=== PATIENT | female | born 2000 ===

== ENCOUNTER 2024-10-22 06:19 | Inpatient (IN) | payer MEDICAID, OTHER ==
[~2024-10-22] VITALS: Ht 154.9 cm; Wt 73.7 kg
--- NOTE | 2024-10-22 06:38 | ED.PDOC ---
History of Present Illness HPI Comments 23-year-old female came to the ER stating that she has been having back pain for the past two days on and off more so this morning. She denies nausea vomiting diarrhea. She states that her menstrual cycle has not started possibly could be due to pre menstrual period. Denies chest pain shortness a breath. She denies any lifting of heavy objects. Blood pressure 117 over 70 with a heart rate of 160. She denies any past medical surgical history. Denies any other symptoms. 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 Social History Smoker: Non-Smoker Alcohol: Denies ETOH Use Drugs: Denies Drug Use Constitutional: denies: chills, diaphoresis, fatigue, fever, malaise, sweats, weakness, others EENTM: denies: blurred vision, double vision, ear bleeding, ear discharge, ear drainage, ear pain, ear ringing, eye pain, eye redness, hearing loss, mouth pain, mouth swelling, nasal discharge, nose bleeding, nose congestion, nose pain, photophobia, tearing, throat pain, throat swelling, voice changes, others Respiratory: denies: cough, hemoptysis, orthopnea, SOB at rest, shortness of breath, SOB with excertion, stridor, wheezing, others Cardiovascular: denies: chest pain, dizzy spells, diaphoresis, Dyspnea on exertion, edema, irregular heart beat, left arm pain, lightheadedness, palpitations, PND, syncope, others Gastrointestinal: denies: abdomen distended, abdominal pain, blood streaked bowels, constipated, diarrhea, dysphagia, difficulty swallowing, hematemesis, melena, nausea, poor appetite, poor fluid intake, rectal bleeding, rectal pain, vomiting, others Genitourinary: denies: abnormal vagina bleeding, burning, dyspareunia, dysuria, flank pain, frequency, hematuria, incontinence, pain, , vagina discharge, urgency, others Neurological: denies: dizziness, fainting, headache, left sided numbness, left sided weakness, numbness, paresthesia, pre-existing deficit, right sided numbness, right sided weakness, seizure, speech problems, tingling, tremors, weakness, others Musculoskeletal: reports: back pain; denies: gout, joint pain, joint swelling, muscle pain, muscle stiffness, neck pain, others Integumetry: denies: bruises, change in color, change in hair/nails, dryness, laceration, lesions, lumps, rash, wounds, others Allergic/Immunocompromised: denies: Difficulty Healing, Frequent Infections, Hives, Itching, others Hematologic/Lymphatic: denies: anemia, blood clots, easy bleeding, easy bruising, swollen glands, others Endocrine: denies: excessive hunger, excessive sweating, excessive thirst, excessive urination, flushing, intolerance to cold, intolerance to heat, unexplained weight gain, unexplained weight loss, others Psychiatric: denies: anxiety, bipolar disorder, depression, hopeless, panic disorder, schizophrenia, sleepless, suicidal, others Physical Exam General Appearance: Moderate Distress HEENT: Normal ENT Inspection, Pharynx Normal, TMs Normal Neck: Full Range of Motion, Non-Tender, Normal, Normal Inspection Respiratory: Chest Non-Tender, Lungs Clear, No Accessory Muscle Use, No Respiratory Distress, Normal Breath Sounds Cardiovascular: Tachycardia Breast Exam: Deferred Gastrointestinal: No Organomegaly, Non Tender, No Pulsatile Mass, Normal Bowel Sounds, Soft Genitalia: Deferred Pelvic: Deferred Rectal: Deferred Extremities: No calf tenderness, Normal capillary refill, Normal inspection, Normal range of motion, Non-tender, No pedal edema Musculoskeletal : Apperance: Normal Neurologic: Alert, orthotic practitioner II-XII nml as Tested, No Motor Deficits, Normal Affect, Normal Mood, No Sensory Deficits Cerebellar Function: Normal Reflexes: Normal Skin: Dry, Normal Color, Warm Peripheral Pulses: 3+ Radial (R), 3+ Radial (L) Lymphatic: No Adenopathy Was a procedure done? Was a procedure done?: No EKG EKG : Pulse Rate (adult): 124 Cardiac Rhythm: ST Differential Dx Considerations may include: Back pain Urinary tract infection X-Ray, Labs, Meds, VS Vital Signs Date Time Temp Pulse Resp B/P (MAP) Pulse Ox O2 Delivery O2 Flow Rate FiO2 10/22/24 09:26 104 20 111/65 10/22/24 08:45 98.7 6/3/25 08:42 98.4 98 16 110/65 (80) 98 98.4 10/22/24 08:42 98 17 98 Room Air 10/22/24 07:07 101.2 10/22/24 06:52 124 10/22/24 06:46 124 10/22/24 06:19 101.2 124 22 116/77 (90) 95 101.2 Lab Test 10/22/24 07:34 10/22/24 06:50 Range/Units White Blood Count 21.7 H 4.4-10.8 10^3/uL Red Blood Count 5.33 H 4.0-5.20 10^6/uL Hemoglobin 15.2 12.2-16.2 g/dL Hematocrit 44.6 36.0-46.0 % Mean Corpuscular Volume 83.7 80.0-100.0 fL Mean Corpuscular Hemoglobin 28.6 28.0-32.0 pg Mean Corpuscular Hemoglobin Concent 34.2 32.0-36.0 g/dL Red Cell Distribution Width 13.6 11.8-14.3 % Platelet Count 266 140-450 10^3/uL Mean Platelet Volume 8.8 6.9-10.8 fL Neutrophils (%) (Auto) 86.6 H 37.0-80.0 % Lymphocytes (%) (Auto) 4.4 L 10.0-50.0 % Monocytes (%) (Auto) 8.7 0.0-12.0 % Eosinophils (%) (Auto) 0.1 0.0-7.0 % Basophils (%) (Auto) 0.2 0.0-2.0 % Neutrophils # (Auto) 18.8 H 1.6-8.6 10 ^3/uL Lymphocytes # (Auto) 0.9 0.4-5.4 10 ^3/uL Monocytes # (Auto) 1.9 H 0-1.3 10 ^3/uL Eosinophils # (Auto) 0 0-0.8 10 ^3/uL Basophils # (Auto) 0 0-0.2 10 ^3/uL Nucleated Red Blood Cells 0.0 % Sodium Level 141 136-145 mmol/L Potassium Level 3.7 3.5-5.1 mmol/L Chloride Level 107 98-107 mmol/L Carbon Dioxide Level 24 20-31 mmol/L Anion Gap 10 5-15 Blood Urea Nitrogen 11 9-23 mg/dL Creatinine 1.01 0.550-1.02 mg/dL Glomerular Filtration Rate Calc 79 >90 mL/min BUN/Creatinine Ratio 10.9 10.0-20.0 Serum Glucose 107 H 74-106 mg/dL Lactic Acid Level 1.2 0.4-2.0 mmol/L Calcium Level 10.5 H 8.7-10.4 mg/dL Total Bilirubin 2.2 H 0.2-1.0 mg/dL Aspartate Amino Transferase (AST) 23 13-40 U/L Alanine Aminotransferase (ALT) 46 H 7-40 U/L Alkaline Phosphatase 107 46-116 U/L Total Protein 8.3 H 5.7-8.2 g/dL Albumin 5.0 H 3.2-4.8 g/dL Urine Color Yellow Yellow Urine Clarity Turbid H Clear Urine pH 6.0 5.0-9.0 Urine Specific [place] 1.019 1.001-1.035 Urine Protein 2+ H Negative Urine Ketones Negative Negative Urine Blood 2+ H Negative /uL Urine Nitrite 2+ H Negative Urine Bilirubin Negative Negative Urine Urobilinogen Normal Negative mg/dL Urine Leukocyte Esterase 3+ Negative /uL Urine RBC 42 0 - 4 /hpf Urine Microscopic WBC 307 H 0-5 /HPF Urine Squamous Epithelial Cells Few <5 /hpf Urine Bacteria Few H None Seen /hpf Urine Mucus Few None Seen Urine Glucose Normal Normal mg/dL Current Medications Medications (Trade) Dose Ordered Sig/Genoveva Route Start Time Stop Time Status Last Admin Acetaminophen (Tylenol Tablet) 650 mg ONCE ONCE PO 10/22/24 07:15 10/22/24 07:16 DC 10/22/24 07:07 Morphine Sulfate 4 mg ONCE ONCE IV 10/22/24 07:15 10/22/24 07:16 DC 10/22/24 09:26 Ondansetron HCl (Zofran) 4 mg ONCE ONCE IV 10/22/24 07:15 10/22/24 07:16 DC 10/22/24 09:26 Sodium Chloride 1,000 ml @ 1,000 mls/hr Q1H ONCE IV 10/22/24 09:30 10/22/24 10:29 10/22/24 09:26 Patient alert. Increased heart rate. Ambulating. Saturation pristine on room air. Denies lifting heavy objects. Patient continues to be in pain. UA shows UTI. Establish intravenous access. Urine culture. WBC elevated. Sepsis from urinary tract infection. Was given Rocephin. Was given Flagyl. Explained to the patient. Continue monitoring. Time of 1ST Reevaluation: 06:37 Reevaluation 1ST: Unchanged Patient Education/Counseling: Diagnosis, Treatment, Prognosis Family Education/Counseling: Need For Follow Up Additional Information The following tests were ordered, and results were reviewed by me: XY LUMBAR SPINE 4+ VIEW, UA, XY LUMBAR SPINE 3 VIEW I reviewed and agreed with the following test results read by other providers: XY LUMBAR SPINE 4+ VIEW, XY LUMBAR SPINE 3 VIEW I discussed treatment and results with medical personnel and: patient Comprehensive systems review obtained and negative except for what is stated in the HPI. Sepsis Sepsis Reasesment Focused Exam Orders: Laboratory Tests 10/22/24 07:34: Lactic Acid Level 1.2 Departure 1 Departure Time of Disposition: 06:38 Impression: Primary Impression: Sepsis due to urinary tract infection Additional Impressions: Hematuria Qualified Codes: R31.9 - Hematuria, unspecified Kidney stone Lumbar sprain Qualified Codes: S33.5XXA - Sprain of ligaments of lumbar spine, initial encounter Disposition: ADMITTED INPATIENT Admit to: Med Surg Condition: Guarded Critical Care Note Critical Care Time?: Yes (90 min-critical care time only) Critical care comment: Sepsis protocol Stability Stability form required: No Heart Score Heart Score: Heart Score Response (Comments) Value History Slightly Suspicious 0 EKG Normal 0 Age <45 0 Risk Factors No known risk factors 0 Troponin Normal limit 0 Total 0 I personally scribed for CHICHO DANIELSON MD ([email or web address]) on 10/22/24 at 07:07. Electronically submitted by Mavis Yeung ([email or web address]). CHICHO DANIELSON MD Oct 22, 2024 06:38
[2024-10-22] MEDS: ACETAMINOPHEN 325 MG TAB PO ONE (07:07)
[2024-10-22 07:44] LABS: Urine Bacteria FEW /hpf (None Seen); Urine Blood 2+ /uL (Negative); Urine Clarity Turbid (Clear); Urine Color Yellow (Yellow); Urine Mucus FEW (None Seen); Urine Protein, UAD 2+ (Negative); Urine Specific Gravity 1.019 (1.001-1.035); Urine Squamous Epithelial Cell FEW /hpf (<5); Urine Urobilinogen Normal (Negative); Urine WBC 307 /HPF (0-5)
--- NOTE | 2024-10-22 08:03 | DVH ---
EXAM: XR Lumbosacral Spine, 2 or 3 Views CLINICAL INDICATION: disc TECHNIQUE: Frontal and lateral views of the lumbar spine and sacrum. COMPARISON: None FINDINGS: VERTEBRAE: Unremarkable. No acute fracture. Normal alignment. SACRUM/COCCYX: Unremarkable as visualized. No acute fracture. DISC SPACES: No acute findings. No significant narrowing. SOFT TISSUES: Unremarkable. OTHER FINDINGS: . IMPRESSION: No acute fracture.
[2024-10-22 08:11] LABS: Basophils # (auto) 0 10 ^3/uL (0-0.2); Basophils % (auto) 0.2 % (0.0-2.0); Eosinophils # (auto) 0 10 ^3/uL (0-0.8); Eosinophils % (auto) 0.1 % (0.0-7.0); Hematocrit 44.6 % (36.0-46.0); Hemoglobin 15.2 g/dL (12.2-16.2); Lymphocytes # (auto) 0.9 10 ^3/uL (0.4-5.4); Lymphocytes % (auto) 4.4 % (10.0-50.0); Mean Corpuscular Hemoglobin 28.6 pg (28.0-32.0); Mean Corpuscular Hgb Conc. 34.2 g/dL (32.0-36.0); Mean Corpuscular Volume 83.7 fL (80.0-100.0); Monocytes # (auto) 1.9 10 ^3/uL (0-1.3); Monocytes % (auto) 8.7 % (0.0-12.0); Neutrophils # (auto) 18.8 10 ^3/uL (1.6-8.6); Neutrophils % (auto) 86.6 % (37.0-80.0); Platelet Count (auto) 266 10^3/uL (140-450); Red Blood Cells 5.33 10^6/uL (4.0-5.20); Red Cell Distribution Width 13.6 % (11.8-14.3); White Blood Cell 21.7 10^3/uL (4.4-10.8)
[2024-10-22 08:26] LABS: Alkaline Phosphatase 107 U/L (46-116); Anion Gap 10 (5-15); Aspartate Aminotransferase 23 U/L (13-40); BUN/Creatinine Ratio 10.9 (10.0-20.0); Blood Urea Nitrogen 11 mg/dL (9-23); Carbon Dioxide 24 mmol/L (20-31); Chloride 107 mmol/L (98-107); Potassium 3.7 mmol/L (3.5-5.1); Sodium 141 mmol/L (136-145)
[2024-10-22 08:31] LABS: Alanine Aminotransferase 46 U/L (7-40); Bilirubin, Total 2.2 mg/dL (0.2-1.0); Calcium 10.5 mg/dL (8.7-10.4); Total Protein 8.3 g/dL (5.7-8.2)
[2024-10-22 08:47] LABS: Glucose 107 mg/dL (74-106)
[2024-10-22] MEDS: SODIUM CHLORIDE 0.9% 1,000 ML IV ONE (09:26)
[2024-10-22] MEDS: MORPHINE SULFATE 4 MG/ML SYR/VIAL IV ONE (09:26)
[2024-10-22] MEDS: ONDANSETRON HCL 4 MG/2 ML VIAL IV ONE (09:26)
--- NOTE | 2024-10-22 10:01 | DVH ---
CT ABDOMEN AND PELVIS WITHOUT CONTRAST CLINICAL HISTORY: r/o kidney stone TECHNIQUE: Multiple contiguous axial images of the abdomen and pelvis without intravenous contrast. T he images were reformatted degenerate coronal and sagittal reconstructions. All CT scans at this medical facility are performed using dose modulation techniques as appropriate t o a performed exam including the following:Automated exposure control was utilized; adjustment of the MA and/or KV according to patient size; and use of iterative reconstruction technique. Radiation Dose Information: CT Dose: CTDI volume is 8 mGy. Dose-length product is 415 mGy*cm Comparison: None FINDINGS: Evaluation of the abdomen and pelvis is limited without intravenous contrast. There is no evidence of nephrolithiasis or hydronephrosis. There is no evidence of a ureteral calculu s or hydroureter. The liver, gallbladder, pancreas, adrenal glands, and spleen appear within normal limits. There is no gross evidence of abdominal lymphadenopathy. There is no free fluid or free air. The stomach grossly appears unremarkable. The small and large bowel loops demonstrate normal caliber and distribution. The appendix is not seen in the right lower quadrant abdomen. There are no seconda ry signs of acute appendicitis. The abdominal aorta and IVC appear within normal limits. The bladder appears unremarkable for the degree of distention. There is an IUD in the uterus.. There is no gross evidence of a pelvic mass. There is small amount of fluid in the posterior cul-de-sac, p robably physiologic. Lung bases are clear. There is no acute osseous abnormality. IMPRESSION: 1. There is no acute process in the abdomen and pelvis. HS:Y
[2024-10-22] MEDS ORDERED: MORPHINE SULFATE INJ 2 MG/ml SYRG IV PRN (10:45)
[2024-10-22] MEDS ORDERED: DOCUSATE SOD 100 MG CAP PO PRN (10:45)
--- NOTE | 2024-10-22 11:12 | DVHHP2 ---
History of Present Illness Reason for Visit: Abdominal pain History of Present Illness Keshia Mazariegos is a 23-year-old female with no significant past medical history being seen back and abdominal pain. Patient states her pain began on Monday night. She states it is better during the day and worsens at night. Her pain is in her RUQ and radiates to her back, with associated fever and chills. She states she also has hematuria and frequency with urination, denies any dysuria. Past Surgical History: None Smoke: No ALCOHOL: rare Drugs: None Lives: with Family Domestic Violence: Neg Review of Systems Constitutional: No: Fever, Chills, Sweats, Weakness, Malaise, Other Eyes: No: Pain, Vision change, Conjunctivae inflammation, Eyelid inflammation, Other, Redness ENT: No: Ear pain, Ear discharge, Nose pain, Nose discharge, Nose congestion, Mouth pain, Mouth swelling, Throat pain, Throat swelling, Other Respiratory: No: Cough, Dry, Shortness of breath, SOB with excertion, Wheezing, Hemoptysis, Pleuritic Pain, Sputum, Wheezing, Other Cardiovascular: No: Chest Pain, Palpitations, Orthopnea, Paroxysmal Noc. Dyspnea, Edema, Lt Headedness, Other Gastrointestinal: Abdominal Pain (RUQ); No: Nausea, Vomiting, Diarrhea, Constipation, Melena, Hematochezia, Other Genitourinary: No Dysuria; Frequency; No Incontinence; Hematuria; No Retention, No Other Musculoskeletal: back pain (right flank pain); No: other, neck pain, shoulder pain, arm pain, hand pain, leg pain, foot pain Skin: No: Rash, Lesions, Jaundice, Bruising, Other Neurological: No: Weakness, Numbness, Incoordination, Change in speech, Confusion, Seizures, Other Allergies: Coded Allergies: NO KNOWN ALLERGIES (Unverified , 10/22/24) Exam Vital Signs Vital Signs Date Time Temp Pulse Resp B/P (MAP) Pulse Ox O2 Delivery O2 Flow Rate FiO2 10/22/24 09:26 104 20 111/65 10/22/24 08:45 98.7 10/22/24 08:42 98 10/22/24 08:42 Room Air General Appearance: Alert, Oriented X3, Cooperative, moderate distress HEENT: Atraumatic, PERRLA Respiratory: Clear to auscultation, Normal air movement Cardiovascular: Regular rate, Normal S1, Normal S2 Abdominal: Normal bowel sounds, Other (RUQ pain radiating to right flank, hematuria) Extremities: No clubbing, No cyanosis, No edema, Normal pulses Skin: No rashes, No breakdown, No significant lesion Neuro: Normal gait, Normal speech, Strength at 5/5 X4 ext Psych/Mental Status: Mental status NL, Mood NL Labs/Xrays Labs Test 10/22/24 07:34 10/22/24 06:50 Range/Units White Blood Count 21.7 H 4.4-10.8 10^3/uL Red Blood Count 5.33 H 4.0-5.20 10^6/uL Hemoglobin 15.2 12.2-16.2 g/dL Hematocrit 44.6 36.0-46.0 % Mean Corpuscular Volume 83.7 80.0-100.0 fL Mean Corpuscular Hemoglobin 28.6 28.0-32.0 pg Mean Corpuscular Hemoglobin Concent 34.2 32.0-36.0 g/dL Red Cell Distribution Width 13.6 11.8-14.3 % Platelet Count 266 140-450 10^3/uL Mean Platelet Volume 8.8 6.9-10.8 fL Neutrophils (%) (Auto) 86.6 H 37.0-80.0 % Lymphocytes (%) (Auto) 4.4 L 10.0-50.0 % Monocytes (%) (Auto) 8.7 0.0-12.0 % Eosinophils (%) (Auto) 0.1 0.0-7.0 % Basophils (%) (Auto) 0.2 0.0-2.0 % Neutrophils # (Auto) 18.8 H 1.6-8.6 10 ^3/uL Lymphocytes # (Auto) 0.9 0.4-5.4 10 ^3/uL Monocytes # (Auto) 1.9 H 0-1.3 10 ^3/uL Eosinophils # (Auto) 0 0-0.8 10 ^3/uL Basophils # (Auto) 0 0-0.2 10 ^3/uL Nucleated Red Blood Cells 0.0 % Sodium Level 141 136-145 mmol/L Potassium Level 3.7 3.5-5.1 mmol/L Chloride Level 107 98-107 mmol/L Carbon Dioxide Level 24 20-31 mmol/L Anion Gap 10 5-15 Blood Urea Nitrogen 11 9-23 mg/dL Creatinine 1.01 0.550-1.02 mg/dL Glomerular Filtration Rate Calc 79 >90 mL/min BUN/Creatinine Ratio 10.9 10.0-20.0 Serum Glucose 107 H 74-106 mg/dL Lactic Acid Level 1.2 0.4-2.0 mmol/L Calcium Level 10.5 H 8.7-10.4 mg/dL Total Bilirubin 2.2 H 0.2-1.0 mg/dL Aspartate Amino Transferase (AST) 23 13-40 U/L Alanine Aminotransferase (ALT) 46 H 7-40 U/L Alkaline Phosphatase 107 46-116 U/L Total Protein 8.3 H 5.7-8.2 g/dL Albumin 5.0 H 3.2-4.8 g/dL Urine Color Yellow Yellow Urine Clarity Turbid H Clear Urine pH 6.0 5.0-9.0 Urine Specific [place] 1.019 1.001-1.035 Urine Protein 2+ H Negative Urine Ketones Negative Negative Urine Blood 2+ H Negative /uL Urine Nitrite 2+ H Negative Urine Bilirubin Negative Negative Urine Urobilinogen Normal Negative mg/dL Urine Leukocyte Esterase 3+ Negative /uL Urine RBC 42 0 - 4 /hpf Urine Microscopic WBC 307 H 0-5 /HPF Urine Squamous Epithelial Cells Few <5 /hpf Urine Bacteria Few H None Seen /hpf Urine Mucus Few None Seen Urine Glucose Normal Normal mg/dL EXAM: XR Lumbosacral Spine, 2 or 3 Views FINDINGS: VERTEBRAE: Unremarkable. No acute fracture. Normal alignment. SACRUM/COCCYX: Unremarkable as visualized. No acute fracture. DISC SPACES: No acute findings. No significant narrowing. SOFT TISSUES: Unremarkable. OTHER FINDINGS: . IMPRESSION: No acute fracture. CT ABDOMEN AND PELVIS WITHOUT CONTRAST FINDINGS: Evaluation of the abdomen and pelvis is limited without intravenous contrast. There is no evidence of nephrolithiasis or hydronephrosis. There is no evidence of a ureteral calculus or hydroureter. The liver, gallbladder, pancreas, adrenal glands, and spleen appear within normal limits. There is no gross evidence of abdominal lymphadenopathy. There is no free fluid or free air. The stomach grossly appears unremarkable. The small and large bowel loops demonstrate normal caliber and distribution. The appendix is not seen in the right lower quadrant abdomen. There are no secondary signs of acute appendicitis. The abdominal aorta and IVC appear within normal limits. The bladder appears unremarkable for the degree of distention. There is an IUD in the uterus.. There is no gross evidence of a pelvic mass. There is small amount of fluid in the posterior cul-de-sac, probably physiologic. Lung bases are clear. There is no acute osseous abnormality. IMPRESSION: 1. There is no acute process in the abdomen and pelvis. Assessment/Plan Assessment/Plan Assessment: Complicated urinary tract infection, Possible pyelonephritis, Possible PID with lorraine hepatitis, due to IUD, SIRS, Hyperbilirubinemia, Leukocytosis, Plan: Admit to Med-Surg, Renal ultrasound, Pelvic ultrasound, IV antibiotics, IV hydration, STD testing, Consider [employer] POINT ATT[employer]ER consult if patient worsens, Hepatitis panel, Blood culture, Urine culture, Plan discussed with: Patient My Orders Orders - BARBARA CHANDRA Procedure Category Date Status Time Admit ADMIT 10/22/24 Verified 10:45 Code Status CODE 10/22/24 Verified 10:45 Hydrocodone-Acet PHA 10/22/24 Verified 5/325mg Tab ([place] 10:45 Ondansetron Hcl PHA 10/22/24 Verified (Zofran) 10:45 Docusate Sodium PHA 10/22/24 Verified Capsule (Colace 10:45 Complete Blood Count LAB 10/23/24 Verified 04:00 Comprehensive LAB 10/23/24 Verified Metabolic Panel 04:00 Condition: Critical SOBEIDA 10/22/24 Verified 10:45 Acetaminophen Tablet PHA 10/22/24 Verified (Tylenol Tablet) 10:45 Morphine Sulfate PHA 10/22/24 Verified Injection 10:45 Kidney US 10/22/24 Verified 10:45 Pelvic US 10/22/24 Verified 10:45 Date of Service: Oct 22, 2024 Billing Provider: BARBARA CHANDRA Common Visit Codes: [id number] INP/OBS CARE (MOD) BARBARA CHANDRA Oct 22, 2024 11:12
[2024-10-22] MEDS: cefTRIAXone 1GM/50ML D5W 50 ML IV ONE (11:38)
--- NOTE | 2024-10-22 11:42 | DVH ---
INDICATION: IUD placement, possible PID TECHNIQUE: Multiple real-time grayscale transabdominal sonographic images along with color and duplex Doppler of the uterus and ovaries were obtained. COMPARISON: None FINDINGS: The uterus measures 6.7 x 5.2 x 5.3 cm. Intrauterine device is visualized in appropriate po sition. The right ovary measures 2.9 x 2.0 x 3.6 cm. The left ovary measures 2.6 x 2.2 x 3.7 cm. Subsequent color and duplex Doppler interrogation of the ovaries demonstrated symmetric vascular flow to both ovaries, though this does not exclude the possibility of torsion due to the dual blood suppl y. IMPRESSION: Intrauterine device is visualized in appropriate position.
--- NOTE | 2024-10-22 11:46 | DVH ---
INDICATION: Possible pyelonephritis TECHNIQUE: Multiple real-time sonographic images of the kidneys and bladder were obtained. COMPARISON: None FINDINGS: The right kidney measures 11.7 cm in length, which is normal in size. There is normal echog enicity of the right kidney. No hydronephrosis. The left kidney measures 10.8 cm in length, which is normal in size. There is normal echogenicity of the left kidney. No hydronephrosis. The urinary bladder is contracted which limits evaluation. IMPRESSION: 1. Normal sonographic appearance of the kidneys. No hydronephrosis.
[2024-10-22] MEDS: metroNIDAZOLE 500MG/100ML 100 ML IV ONE (11:53)
[2024-10-22] MEDS: HYDROcodone-ACET 5/325MG TAB PO PRN (12:49)
[2024-10-22] MEDS: DOXYCYCLINE 100MG/100ML 100 ML IV SCH (14:56)
[2024-10-22] MEDS: ONDANSETRON HCL 4 MG/2 ML VIAL IV PRN (18:35)
[2024-10-22 19:42] VITALS: BP 114/66; PULSE 107; RESP 18; TEMP 98.3; O2SAT 96
[2024-10-22 21:00] VITALS: BP 126/73; PULSE 107; RESP 17; TEMP 99.3; O2SAT 98
[2024-10-22] MEDS: metroNIDAZOLE 500MG/100ML 100 ML IV SCH (22:13)
[2024-10-23] VITALS (7 sets, daily range): BP systolic 102–122; BP diastolic 59–72; PULSE 80–108; RESP 15–20; TEMP 97.7–100.2; O2SAT 96–99
[2024-10-23] MEDS: MORPHINE SULFATE 4 MG/ML SYR/VIAL IV PRN (02:54)
[2024-10-23 06:56] LABS: Basophils # (auto) 0 10 ^3/uL (0-0.2); Basophils % (auto) 0.2 % (0.0-2.0); Eosinophils # (auto) 0.1 10 ^3/uL (0-0.8); Eosinophils % (auto) 0.4 % (0.0-7.0); Hematocrit 43.9 % (36.0-46.0); Hemoglobin 14.7 g/dL (12.2-16.2); Lymphocytes % (auto) 11.8 % (10.0-50.0); Mean Corpuscular Hemoglobin 28.8 pg (28.0-32.0); Mean Corpuscular Hgb Conc. 33.6 g/dL (32.0-36.0); Mean Corpuscular Volume 85.9 fL (80.0-100.0); Monocytes # (auto) 1.6 10 ^3/uL (0-1.3); Monocytes % (auto) 9.3 % (0.0-12.0); Neutrophils # (auto) 13.4 10 ^3/uL (1.6-8.6); Neutrophils % (auto) 78.3 % (37.0-80.0); Platelet Count (auto) 243 10^3/uL (140-450); Red Blood Cells 5.11 10^6/uL (4.0-5.20); Red Cell Distribution Width 13.8 % (11.8-14.3); White Blood Cell 17.2 10^3/uL (4.4-10.8)
[2024-10-23 07:08] LABS: Alanine Aminotransferase 29 U/L (7-40); Alkaline Phosphatase 94 U/L (46-116); Anion Gap 8 (5-15); BUN/Creatinine Ratio 8.7 (10.0-20.0); Calcium 10.1 mg/dL (8.7-10.4); Carbon Dioxide 25 mmol/L (20-31); Chloride 104 mmol/L (98-107); Glucose 97 mg/dL (74-106); Sodium 137 mmol/L (136-145); Total Protein 8.1 g/dL (5.7-8.2)
[2024-10-23 07:10] LABS: Aspartate Aminotransferase 12 U/L (13-40); Bilirubin, Total 1.5 mg/dL (0.2-1.0); Blood Urea Nitrogen 8 mg/dL (9-23)
[2024-10-23 07:17] LABS: Albumin 4.8 g/dL (3.2-4.8)
[2024-10-23] MEDS: cefTRIAXone 1GM/50ML D5W 50 ML IV SCH (09:14)
[2024-10-23] MEDS: ACETAMINOPHEN 325 MG TAB PO PRN (09:19)
[2024-10-23 10:18] LABS: Hepatitis B Surface Antigen Negative (Negative)
[2024-10-23 10:42] LABS: Hepatitis A Ab IgM Negative; Hepatitis B Core IgM Negative (Negative); Hepatitis C Antibody Negative (Negative)
--- NOTE | 2024-10-23 15:05 | DVHPN2 ---
Progress Note Date Seen: Oct 23, 2024 Medical Necessity Reason Pt with a Central, PICC or Fol: No Subjective Patient reports: No new complaints Review of Systems: HEENT:Normal, CVS:Normal, RESPIRATORY:Normal, GI:Normal, :Normal, MSK:Normal, NEURO:Normal Objective vital signs Vital Sign Date Time Temp Pulse Resp B/P (MAP) Pulse Ox O2 Delivery O2 Flow Rate FiO2 10/23/24 13:00 97.7 80 18 102/60 (74) 97 97.7 10/23/24 08:05 Room Air* 0 21 Total Intake and Output 10/22/24 10/22/24 10/23/24 15:00 23:00 07:00 Intake Total 100 ml 550 ml Balance 100 ml 550 ml medications Current Medications Medications Dose Ordered Sig/Genoveva Route Start Time Stop Time Status Last Admin Dose Admin Acetaminophen/ Hydrocodone Bitart 1 tab Q4HP PRN PO 10/22/24 10:45 10/22/24 18:35 1 TAB Ondansetron HCl 4 mg Q4HP PRN IV 10/22/24 10:45 10/22/24 18:35 4 MG Docusate Sodium 100 mg BIDPRN PRN PO 10/22/24 10:45 Acetaminophen 650 mg Q6HP PRN PO 10/22/24 10:45 10/23/24 09:19 650 MG Ceftriaxone Sodium 50 ml @ 100 mls/hr DAILY@09 IV 10/23/24 09:00 10/23/24 09:14 100 MLS/HR Metronidazole 100 ml @ 100 mls/hr Q8HR IV 10/22/24 22:00 10/23/24 13:47 100 MLS/HR Doxycycline Hyclate 100 ml @ 50 mls/hr Q12H IV 10/22/24 11:15 10/23/24 10:38 50 MLS/HR Morphine Sulfate 2 mg Q4HPRN PRN IV 10/23/24 03:00 10/23/24 02:54 2 MG Examination: GENERAL:Normal, HEENT:Normal, NECK:Normal, LUNGS:Normal, CVS:Normal, ABDOMEN:Normal, MSK:Normal, SKIN:Normal, NEURO:Normal, :Normal, :Abnormal (right flank tenderness) laboratory and microbiology Laboratory Tests 10/23/24 06:22 Test 10/23/24 06:22 Range/Units Serum Glucose 97 74-106 mg/dL Microbiology Date/Time Source Procedure Growth Status 10/22/24 07:34 Blood Blood Culture - Preliminary NO GROWTH AFTER 24 HOURS OF INCUBATION. Resulted 10/22/24 06:50 Voided Urine Urine Culture - Preliminary Resulted Problem List/Assessment/Plan Problem List/Assessment/Plan #1 sepsis with right pyelonephritis: ivf, iv rocephin Plan discussed with: Patient Date of Service: Oct 23, 2024 Billing Provider: RAHEEL ADAMES MD Common Visit Codes: [id number] INP/OBS CARE(HIGH) RAHEEL ADAMES MD Oct 23, 2024 15:05
[2024-10-23] MEDS: SODIUM CHLORIDE 0.9% 1,000 ML IV SCH (15:15)
[2024-10-23 21:06] LABS: Chlamydia Trachomatis, NAA Negative (Negative); Neisseria gonorrhoeae, NAA Negative (Negative)
[2024-10-24] VITALS (8 sets, daily range): BP systolic 96–124; BP diastolic 53–81; PULSE 63–97; RESP 14–16; TEMP 97.5–98.8; O2SAT 95–100
[2024-10-24 06:13] LABS: Anion Gap 8 (5-15); Calcium 10.3 mg/dL (8.7-10.4); Carbon Dioxide 23 mmol/L (20-31); Chloride 106 mmol/L (98-107); Sodium 137 mmol/L (136-145)
[2024-10-24 06:18] LABS: BUN/Creatinine Ratio 8.8 (10.0-20.0); Glucose 87 mg/dL (74-106)
[2024-10-24 06:23] LABS: Blood Urea Nitrogen 7 mg/dL (9-23)
--- NOTE | 2024-10-24 07:06 | ECG ---
[facility] Test Date: 2024-10-22 Test Time: 06:46:21 Pat Name: OLLIE DORSEY Department: ER Room: 0283 A Gender: F Personal Computer Network Engineer: LISA : 2000 Requested By: CHICHO DANIELSON Order Number: [id number] Reading MD: Reigs Olsen Measurements Intervals [place] Rate: 124 P: 52 IN: 135 QRS: 10 QRSD: 92 T: 31 QT: 287 QTc: 413 Interpretive Statements Sinus tachycardia Probable left atrial enlargement Electronically Signed On 10-24-2024 9:34:15 PDT by Regis Olsen Please click the below link to view image of tracing.
[2024-10-24 08:20] LABS: Basophils # (auto) 0 10 ^3/uL (0-0.2); Basophils % (auto) 0.3 % (0.0-2.0); Eosinophils # (auto) 0.1 10 ^3/uL (0-0.8); Eosinophils % (auto) 0.9 % (0.0-7.0); Hematocrit 43.3 % (36.0-46.0); Hemoglobin 14.6 g/dL (12.2-16.2); Lymphocytes # (auto) 1.8 10 ^3/uL (0.4-5.4); Lymphocytes % (auto) 16.1 % (10.0-50.0); Mean Corpuscular Hemoglobin 28.7 pg (28.0-32.0); Mean Corpuscular Hgb Conc. 33.7 g/dL (32.0-36.0); Mean Corpuscular Volume 85.1 fL (80.0-100.0); Monocytes # (auto) 1.1 10 ^3/uL (0-1.3); Monocytes % (auto) 9.6 % (0.0-12.0); Neutrophils # (auto) 8.3 10 ^3/uL (1.6-8.6); Neutrophils % (auto) 73.1 % (37.0-80.0); Nucleated Red Blood Cells % 0.1 %; Platelet Count (auto) 242 10^3/uL (140-450); Red Blood Cells 5.08 10^6/uL (4.0-5.20); Red Cell Distribution Width 13.1 % (11.8-14.3); White Blood Cell 11.3 10^3/uL (4.4-10.8)
[2024-10-24] MEDS: cefTRIAXone 2GM/50ML D5W 50 ML IV SCH (09:16)
--- NOTE | 2024-10-24 10:25 | DVHPN2 ---
Progress Note Date Seen: Oct 24, 2024 Medical Necessity Reason Pt with a Central, PICC or Fol: No Subjective Patient reports: No new complaints Review of Systems: HEENT:Normal, CVS:Normal, RESPIRATORY:Normal, GI:Normal, :Normal, MSK:Normal, NEURO:Normal Objective vital signs Vital Sign Date Time Temp Pulse Resp B/P (MAP) Pulse Ox O2 Delivery O2 Flow Rate FiO2 10/24/24 09:00 98.3 83 16 108/76 (87) 98 98.3 10/24/24 08:00 Room Air* 0 21 Total Intake and Output 10/23/24 10/23/24 10/24/24 15:00 23:00 07:00 Intake Total 250 ml 2340 ml 500 ml Balance 250 ml 2340 ml 500 ml medications Current Medications Medications Dose Ordered Sig/Genoveva Route Start Time Stop Time Status Last Admin Dose Admin Acetaminophen/ Hydrocodone Bitart 1 tab Q4HP PRN PO 10/22/24 10:45 10/23/24 17:03 1 TAB Ondansetron HCl 4 mg Q4HP PRN IV 10/22/24 10:45 10/23/24 18:08 4 MG Docusate Sodium 100 mg BIDPRN PRN PO 10/22/24 10:45 Acetaminophen 650 mg Q6HP PRN PO 10/22/24 10:45 10/23/24 09:19 650 MG Morphine Sulfate 2 mg Q4HPRN PRN IV 10/23/24 03:00 10/23/24 18:57 2 MG Ceftriaxone Sodium/Dextrose 50 ml @ 50 mls/hr DAILY IV 10/24/24 10:00 10/24/24 09:16 50 MLS/HR Sodium Chloride 1,000 ml @ 100 mls/hr Q10H IV 10/23/24 15:15 10/24/24 01:15 100 MLS/HR Examination: GENERAL:Normal, HEENT:Normal, NECK:Normal, LUNGS:Normal, CVS:Normal, ABDOMEN:Normal, MSK:Normal, SKIN:Normal, NEURO:Normal, :Normal, :Abnormal (right flank tenderness) laboratory and microbiology Laboratory Tests 10/24/24 08:08 10/24/24 05:14 Test 10/24/24 05:14 Range/Units Serum Glucose 87 74-106 mg/dL Microbiology Date/Time Source Procedure Growth Status 10/22/24 07:34 Blood Blood Culture - Preliminary NO GROWTH AFTER 48 HOURS OF INCUBATION. Resulted 10/22/24 06:50 Voided Urine Urine Culture - Preliminary Resulted Problem List/Assessment/Plan Problem List/Assessment/Plan #1 sepsis with right pyelonephritis: ivf, iv rocephin, iv toradol Plan discussed with: Patient My Orders My Orders Orders - RAHEEL ADAMES MD Procedure Category Date Status Time Ceftriaxone 2gm/50ml PHA 10/24/24 In Process D5w (Rocephin 2gm/5 10:00 Sodium Chloride 0.9% PHA 10/23/24 In Process 15:15 Date of Service: Oct 24, 2024 Billing Provider: RAHEEL ADAMES MD Common Visit Codes: [id number] INP/OBS CARE(HIGH) RAHEEL ADAMES MD Oct 24, 2024 10:25
[2024-10-24] MEDS: KETOROLAC TROMETH 30 MG/ML 1ML VIAL IV ONE (11:13)
[2024-10-25] VITALS (7 sets, daily range): BP systolic 116–125; BP diastolic 61–90; PULSE 68–97; RESP 14–16; TEMP 96.4–99.6; O2SAT 96–100
[2024-10-25 08:42] LABS: Basophils # (auto) 0 10 ^3/uL (0-0.2); Basophils % (auto) 0.4 % (0.0-2.0); Eosinophils # (auto) 0.2 10 ^3/uL (0-0.8); Eosinophils % (auto) 2.1 % (0.0-7.0); Hematocrit 41.9 % (36.0-46.0); Lymphocytes # (auto) 2.2 10 ^3/uL (0.4-5.4); Lymphocytes % (auto) 30.3 % (10.0-50.0); Mean Corpuscular Hemoglobin 28.9 pg (28.0-32.0); Mean Corpuscular Hgb Conc. 33.5 g/dL (32.0-36.0); Mean Corpuscular Volume 86.2 fL (80.0-100.0); Monocytes # (auto) 0.8 10 ^3/uL (0-1.3); Neutrophils # (auto) 4.1 10 ^3/uL (1.6-8.6); Neutrophils % (auto) 56.2 % (37.0-80.0); Platelet Count (auto) 263 10^3/uL (140-450); Red Blood Cells 4.86 10^6/uL (4.0-5.20); Red Cell Distribution Width 13.2 % (11.8-14.3); White Blood Cell 7.3 10^3/uL (4.4-10.8)
[2024-10-25] MEDS ORDERED: HYDR-4902 PO (13:00)
[2024-10-25] MEDS ORDERED: CIPR500T4 PO (13:00)
--- NOTE | 2024-10-31 20:33 | DVHDS2 ---
Discharge Summary Date of Admission Oct 22, 2024 at 10:45 Date of Discharge: Oct 25, 2024 Labs/Diagnostic Data: Laboratory Results Test 10/25/24 08:20 10/24/24 05:14 10/23/24 06:22 10/22/24 07:34 White Blood Count 7.3 10^3/uL (4.4-10.8) Red Blood Count 4.86 10^6/uL (4.0-5.20) Hemoglobin 14.0 g/dL (12.2-16.2) Hematocrit 41.9 % (36.0-46.0) Mean Corpuscular Volume 86.2 fL (80.0-100.0) Mean Corpuscular Hemoglobin 28.9 pg (28.0-32.0) Mean Corpuscular Hemoglobin Concent 33.5 g/dL (32.0-36.0) Red Cell Distribution Width 13.2 % (11.8-14.3) Platelet Count 263 10^3/uL (140-450) Mean Platelet Volume 8.0 fL (6.9-10.8) Neutrophils (%) (Auto) 56.2 % (37.0-80.0) Lymphocytes (%) (Auto) 30.3 % (10.0-50.0) Monocytes (%) (Auto) 11.0 % (0.0-12.0) Eosinophils (%) (Auto) 2.1 % (0.0-7.0) Basophils (%) (Auto) 0.4 % (0.0-2.0) Neutrophils # (Auto) 4.1 10 ^3/uL (1.6-8.6) Lymphocytes # (Auto) 2.2 10 ^3/uL (0.4-5.4) Monocytes # (Auto) 0.8 10 ^3/uL (0-1.3) Eosinophils # (Auto) 0.2 10 ^3/uL (0-0.8) Basophils # (Auto) 0 10 ^3/uL (0-0.2) Nucleated Red Blood Cells 0.0 % Sodium Level 137 mmol/L (136-145) Potassium Level 4.0 mmol/L (3.5-5.1) Chloride Level 106 mmol/L (98-107) Carbon Dioxide Level 23 mmol/L (20-31) Anion Gap 8 (5-15) Blood Urea Nitrogen 7 mg/dL (9-23) Creatinine 0.80 mg/dL (0.550-1.02) Glomerular Filtration Rate Calc 105 mL/min (>90) BUN/Creatinine Ratio 8.8 (10.0-20.0) Serum Glucose 87 mg/dL (74-106) Calcium Level 10.3 mg/dL (8.7-10.4) Total Bilirubin 1.5 mg/dL (0.2-1.0) Aspartate Amino Transferase (AST) 12 U/L (13-40) Alanine Aminotransferase (ALT) 29 U/L (7-40) Alkaline Phosphatase 94 U/L (46-116) Total Protein 8.1 g/dL (5.7-8.2) Albumin 4.8 g/dL (3.2-4.8) Lactic Acid Level 1.2 mmol/L (0.4-2.0) Hepatitis A IgM Antibody Negative Hepatitis B Surface Antigen Negative (Negative) Hepatitis B Core IgM Antibody Negative (Negative) Hepatitis C Antibody Negative (Negative) Test 10/22/24 06:50 Urine Color Yellow (Yellow) Urine Clarity Turbid (Clear) Urine pH 6.0 (5.0-9.0) Urine Specific [place] 1.019 (1.001-1.035) Urine Protein 2+ (Negative) Urine Ketones Negative (Negative) Urine Blood 2+ /uL (Negative) Urine Nitrite 2+ (Negative) Urine Bilirubin Negative (Negative) Urine Urobilinogen Normal mg/dL (Negative) Urine Leukocyte Esterase 3+ /uL (Negative) Urine RBC 42 /hpf (0 - 4) Urine Microscopic WBC 307 /HPF (0-5) Urine Squamous Epithelial Cells Few /hpf (<5) Urine Bacteria Few /hpf (None Seen) Urine Mucus Few (None Seen) Urine Glucose Normal mg/dL (Normal) Chlamydia trachomatis (MICHAELA) Negative (Negative) Neisseria gonorrhoeae (MICHAELA) Negative (Negative) Other Laboratory Tests 10/25/24 08:20 10/24/24 05:14 Brief Hx & Hospital Course: 23-year-old female with no significant past medical history being seen back and abdominal pain. Patient states her pain began on Monday night. She states it is better during the day and worsens at night. Her pain is in her RUQ and radiates to her back, with associated fever and chills. She states she also has hematuria and frequency with urination, denies any dysuria. Had UTI that responded to IV abx and then switched to orals Condition at Discharge: Good Final Diagnosis/Problems List UTI Discharge Disposition: Home Discharge Instruct/Medications Diet: Regular Activity: No Restrictions, As Tolerated Follow Up/Referral: PCP in 7 days Medications: ciprofloxacin Discharge Statement: "Patient was advised to return to the ER or call 911 if any headaches, dizziness, shortness of breath, chest pain, abdominal pain, bleeding, fevers, or worsening of medical condition. Patient was counseled about treatment plan, medications, possible side effects, patientverbalized understanding. All questions were answered to the best of my ability. This discharge took greater then 30 minutes in planning, reviewing documentation, counseling the patient, and discussing with other team members." ASSESSMENT ASSESSMENT Assessment UTI Date of Service: Oct 25, 2024 Billing Provider: UGO FAYE MD Common Visit Codes: 90235-AUT/OBS DISCH DAY >30min UGO FAYE MD Oct 31, 2024 20:33
== END 2024-10-25 15:43 | disposition home or self-care (01) | DRG 720 ==
LOC: ER 06:19 → OVERFLOW 10:45 → WEST WING 10-23 00:51
PROVIDERS: ADMIT Hospitalist; ATTEND Hospitalist
DX: A41.9 Sepsis, unspecified organism (principal); N12 Tubulo-interstitial nephritis, not specified as acute or chronic; N39.0 Urinary tract infection, site not specified; N20.0 Calculus of kidney; S33.5XXA Sprain of ligaments of lumbar spine, initial encounter; E80.6 Other disorders of bilirubin metabolism; Z79.899 Other long term (current) drug therapy; X58.XXXA Exposure to other specified factors, initial encounter; Y93.89 Activity, other specified; Y92.89 Other specified places as the place of occurrence of the external cause; Y99.8 Other external cause status; N73.9 Female pelvic inflammatory disease, unspecified
CPT/HCPCS: 36415; 72100; 74176; 76775; 76856; 80048; 80053; 80074; 81001; 83605; 85025; 87040; 87086; 87088; 87186; 93005; 99291; 99292; G0378; J1885; J2405; J3490